=== PATIENT | male | born 1970 ===

== ENCOUNTER 2019-03-24 10:31 | Emergency (ER) | payer OTHER ==
[~2019-03-24] VITALS: Ht 172.7 cm; Wt 85.0 kg
[2019-03-24 11:03] VITALS: BP 121/83
--- NOTE | 2019-03-24 11:10 | NUR ---
BRENNON VERDE FROM COURT HOUSE TODAY. PT STATES "I WANNA INSTEAD OF GOING TO ASSISTED." SI. DENIES HI. PT'S AOX4. RESPS EVEN AND UNLABORED. [place] SPEAKING. [employer] [id number]. BELONGINGS PUT INTO 3 BAGS AND PUT INTO LOCKER. ROOM SECURE.
--- NOTE | 2019-03-24 11:18 | NUR ---
EDMD AT BEDSIDE TO EVALUATE AT THIS TIME.
--- NOTE | 2019-03-24 12:09 | NUR ---
Patient given discharge instructions and they have confirmed that they understand the instructions. Patient ambulatory with steady gait. [employer] [id number]
== END 2019-03-24 12:11 | disposition home or self-care (01) ==
LOC: ED 11:30
DX: F41.1 Generalized anxiety disorder (principal)
CPT/HCPCS: 99283; 99284

== ENCOUNTER 2020-09-23 12:27 | Emergency (ER) | payer MEDICAID ==
[~2020-09-23] VITALS: Ht 172.7 cm; Wt 86.1 kg
--- NOTE | 2020-09-23 12:48 | NUR ---
GEOPHYSICAL ENGINEER: PT TO ROOM.
[2020-09-23 13:16] LABS: BASOPHILS % (AUTO) 1 % (0-1); EOSINOPHILS % (AUTO) 5 % (1-7); LYMPHOCYTES % (AUTO) 31 % (22-44); MEAN CORPUSCULAR HEMOGLOBIN 32.9 pg (27.5-34.5); MEAN CORPUSCULAR HGB CONC 36.9 g/dL (33.2-36.2); MEAN PLATELET VOLUME 7.7 fL (7.4-10.4); MONOCYTES % (AUTO) 7 % (2-9); NEUTROPHILS % (AUTO) 55 % (42-75); PLATELET COUNT 275 x10^3/uL (130-400); RED BLOOD COUNT 4.92 x10^6/uL (4.38-5.82); RED CELL DISTRIBUTION WIDTH 13.2 % (9.4-14.8)
[2020-09-23 13:28] LABS: ALANINE AMINOTRANSFERASE 37 U/L (12-78); ALBUMIN 3.6 g/dL (3.4-5.0); ANION GAP 5 mmol/L (5-15); CALCIUM 8.6 mg/dL (8.5-10.1); CHLORIDE 114 mmol/L (98-107); CREATININE 1.06 mg/dL (0.7-1.3)
[2020-09-23 13:29] LABS: SALICYLATE LEVEL < 1.7 mg/dL (2.8-20.0)
[2020-09-23 13:38] LABS: ALKALINE PHOSPHATASE 87 U/L (45-117); BILIRUBIN,TOTAL 0.4 mg/dL (0.2-1.0); TOTAL PROTEIN 7.6 g/dL (6.4-8.2)
--- NOTE | 2020-09-23 13:52 | NUR ---
TASK RN NOTE: PT SITTING UP IN BED. PT AWARE OF NEED FOR UA. PO FLUIDS GIVEN. SITTER OUTSIDE OF ROOM FOR DIRECT OBSERVATION AND Q15 MIN SAFETY CHECKS.
--- NOTE | 2020-09-23 14:15 | NUR ---
report taken from break RN note: anneliese hawk at bedside for psych eval
--- NOTE | 2020-09-23 14:41 | NUR ---
pt still completing psych assessment with anneliese hawk
[2020-09-23] MEDS ORDERED: FLUO10CA15 PO (15:29)
[2020-09-23] MEDS ORDERED: HYDR-826 PO (15:29)
[2020-09-23] MEDS ORDERED: FLUOXETINE 10 MG CAP PO ONE (15:30)
[2020-09-23] MEDS ORDERED: FLUOXETINE 10 MG CAP ONE (15:33)
--- NOTE | 2020-09-23 15:42 | NUR ---
after lengthy consult with anneliese hawk utilizing item processor, pt denies suidicality. plan for safe discharge determined by pt and anneliese hawk. pt a&o, resps even and unlabored. pt medicated per emar, tolerated well. .pt to be discharged.
[2020-09-23 16:49] VITALS: BP 123/80
--- NOTE | 2020-09-23 16:51 | NUR ---
pt given dc instructions and script, educated regarding rx for prozac and atarax. senior it project manager utilized for discharge instructions. pt a&o, resps even and unlabored, verbalizes understanding of dc instructions. pt verbalizes he will return to ED if he feels suicidal again, OP mental health resources and referrals provided. pt ambulatory to dc desk with steady gait, all questions answered.
== END 2020-09-23 16:52 | disposition home or self-care (01) ==
LOC: ED 16:45
DX: F32.9 Major depressive disorder, single episode, unspecified (principal); R45.851 Suicidal ideations; S06.9X0D Unspecified intracranial injury without loss of consciousness, subsequent encounter; X58.XXXD Exposure to other specified factors, subsequent encounter
CPT/HCPCS: 36415; 80053; 80299; 80320; 80329; 84443; 85025; 99283; G0480